=== PATIENT | female | born 1965 | race Native Hawaiian/Other Pacific Islander ===

== ENCOUNTER 2017-05-31 23:34 | Emergency (ER) | payer BC ==
[~2017-05-31] VITALS: Ht 162.6 cm; Wt 68.9 kg
== END 2017-06-01 00:20 | disposition home or self-care (01) ==
LOC: ED 23:34
DX: F43.9 Reaction to severe stress, unspecified (principal); I16.0 Hypertensive urgency; M32.9 Systemic lupus erythematosus, unspecified; Y08.89XA Assault by other specified means, initial encounter; Z04.71 Encounter for examination and observation following alleged adult physical abuse
CPT/HCPCS: 99282